=== PATIENT | female | born 1955 | race Caucasian/White ===

== ENCOUNTER 2019-03-10 08:34 | Outpatient (CLI) | payer BC ==
--- NOTE | 2019-03-10 09:25 | MMO ---
Bilateral MAMMO Bilat Screen [id number]. CLINICAL HISTORY: Patient is 63 years old and is seen for screening. The patient has no family history of breast cancer. The patient has no personal history of cancer. The patient has a history of left Excisional Biopsy at age 47 - benign. VIEWS: The views performed were: bilateral craniocaudal with tomosynthesis; bilateral mediolateral oblique with tomosynthesis; and bilateral exaggerated craniocaudal. FILMS COMPARED: The present examination has been compared to prior imaging studies performed at [facility] on 08/04/2012, 08/07/2013, 10/08/2014 and 03/03/2017. MAMMOGRAM FINDINGS: There are scattered fibroglandular densities. There are stable vascular calcifications seen in the right breast. There are no suspicious masses, suspicious calcifications, or new areas of architectural distortion. IMPRESSION: A ROUTINE FOLLOW-UP MAMMOGRAM IN 1 YEAR IS RECOMMENDED. THE RESULTS OF THIS EXAM WERE SENT TO THE PATIENT. ACR BI-RADS Category 2 - Benign finding MAMMOGRAPHY NOTE: 1. A negative mammogram report should not delay a biopsy if a dominant of clinically suspicious mass is present. 2. Approximately 10% to 15% of breast cancers are not detected by mammography. 3. Adenosis and dense breasts may obscure an underlying neoplasm.
--- NOTE | 2019-03-10 10:05 | BD ---
DEXA BONE DENSITY STUDY: Date: 03/10/19 COMPARISON: 03/03/17. HISTORY: 63-year-old postmenopausal female for screening. FINDINGS: Lumbar Spine: BMD (g/cm2) L1 0.834 T-Score: -1.4 L2 0.888 T-Score: -1.3 L3 0.970 T-Score: -1.0 L4 0.853 T-Score: -1.9 L1-L4 0.888 T-Score: -1.4 Left Femoral Neck: 0.652 T-Score: -1.8 Total Femur: 0.852 T-Score: -0.7 IMPRESSION: Osteopenia. This patient has a 10 year WHO fracture risk for a major osteoporotic fracture of 9.2% an d hip fracture of 1.1%. POS: [facility]
== END 2019-03-10 08:35 | disposition home or self-care (01) ==
LOC: BICMAMMO 08:34
PROVIDERS: ATTEND Family Medicine
DX: Z12.31 Encounter for screening mammogram for malignant neoplasm of breast (principal); Z13.820 Encounter for screening for osteoporosis; M85.89 Other specified disorders of bone density and structure, multiple sites
CPT/HCPCS: 77063; 77067; 77080

== ENCOUNTER 2022-05-05 08:53 | Outpatient (CLI) | payer MEDICARE | END 2022-05-05 08:54 | disposition home or self-care (01) | LOC: BICMAMMO 08:53 | PROVIDERS: ATTEND Family Medicine | DX: Z12.31 Encounter for screening mammogram for malignant neoplasm of breast (principal); Z91.89 Other specified personal risk factors, not elsewhere classified | CPT/HCPCS: 77063; 77067 ==

== ENCOUNTER 2022-08-03 12:58 | Outpatient (CLI) | payer MEDICARE, OTHER | END 2022-08-03 12:59 | disposition home or self-care (01) | LOC: BICRAD 12:58 | PROVIDERS: ATTEND Family Medicine | DX: M54.50 Low back pain, unspecified (principal) | CPT/HCPCS: 72100; 72220 ==

== ENCOUNTER 2023-05-26 13:36 | Outpatient (CLI) | payer MEDICARE | END 2023-05-26 13:37 | disposition home or self-care (01) | LOC: BICMAMMO 13:36 | PROVIDERS: ATTEND Family Medicine | DX: Z12.31 Encounter for screening mammogram for malignant neoplasm of breast (principal); M85.89 Other specified disorders of bone density and structure, multiple sites; Z91.89 Other specified personal risk factors, not elsewhere classified | CPT/HCPCS: 77063; 77067; 77080 ==